=== PATIENT | female | born 1965 | race Caucasian/White ===

== ENCOUNTER → 2017-03-19 | Outpatient (CLI) | payer BC, OTHER ==
[~2017-03-19] MED LIST: MVI; NORCO 325 MG-51 TAB PO
== END ==
LOC: MC.RAD 08:00
DX: Z12.31 Encounter for screening mammogram for malignant neoplasm of breast (principal)

== ENCOUNTER → 2018-04-21 | Outpatient (CLI) | payer OTHER | LOC: MC.RAD 11:40 | DX: Z12.31 Encounter for screening mammogram for malignant neoplasm of breast (principal) ==

== ENCOUNTER → 2019-06-09 | Outpatient (CLI) | payer BC | LOC: MC.RAD 05-19 08:15 | DX: Z12.31 Encounter for screening mammogram for malignant neoplasm of breast (principal) ==

== ENCOUNTER → 2020-06-14 | Outpatient (CLI) | payer BC | LOC: MC.RAD | DX: Z12.31 Encounter for screening mammogram for malignant neoplasm of breast (principal) ==

== ENCOUNTER 2021-09-18 06:36 | Day surgery (SDC) | payer BC ==
[~2021-09-18] VITALS: Ht 162.6 cm; Wt 80.5 kg
[2021-09-18] VITALS (7 sets, daily range): BP systolic 78–123; BP diastolic 43–87; PULSE 65–76; TEMP 97.3–97.5
--- NOTE | 2021-09-18 09:45 | NUR ---
0825 Pt returns from endo procedure via cart and RN assist to GI Person 1. Pt ambulates from cart to recliner with RN assist. Monitors on and alarms set. Call light within reach. Report received from JAYDA Staley. Pt alert and oriented. Pt requests Sprite Zero and muffin. Pt denies any pain or nausea. Pt's present in room. 0835 Pt taking food and drink well. No complications noted. 0905 Discharge instructions given to pt and pt's . All questions answered to their satisfaction. Handed to pt are a thank you card and discharge information. 0945 Pt transferred out of the hospital via wheelchair and this RN assist, to private vehicle driven by pt's .
== END 2021-09-18 09:45 | disposition home or self-care (01) ==
LOC: SDCO 06:36
DX: Z12.11 Encounter for screening for malignant neoplasm of colon (principal); K92.89 Other specified diseases of the digestive system; K57.30 Diverticulosis of large intestine without perforation or abscess without bleeding; E66.8 Other obesity; Z86.16 Personal history of COVID-19
CPT/HCPCS: J2704; J7030

== ENCOUNTER 2023-01-05 19:42 | Emergency (ER) | payer BC ==
[~2023-01-05] VITALS: Ht 162.6 cm; Wt 79.5 kg
[2023-01-05 19:52] VITALS: TEMP 98.1
[2023-01-05 20:34] LABS: BASO # 0.1 K/mm3 (0.0-0.2); BASO % 1.1 % (0.0-2.0); EOS # 0.4 K/mm3 (0.0-0.7); EOS % 5.4 % (0.0-4.0); GRAN # 3.5 K/mm3 (1.4-6.5); GRAN % 47.8 % (42.2-75.2); HEMATOCRIT 41.4 % (37.0-47.0); HEMOGLOBIN 13.7 g/dl (12.5-16.0); LYMPH # 2.8 K/mm3 (1.2-3.4); LYMPH % 38.2 % (20.0-51.0); MEAN CELL VOLUME 95 fl (80.0-100.0); MEAN CORPUSCULAR HEMOGLOBIN 31 pg (27-31); MEAN CORPUSCULAR HGB CONC 33 g/dl (33.0-37.0); MONO # 0.5 K/mm3 (0.1-0.6); MONO % 7.2 % (1.7-9.3); PLATELET COUNT 246 K/mm3 (130-400); RED BLOOD COUNT 4.37 M/mm3 (4.10-5.30); REDCELL DISTRIBUTION WIDTH-CV 12.9 % (11.5-14.5)
[2023-01-05 20:41] LABS: PROTHROMBIN TIME 10.6 SECONDS (9.7-12.8)
[2023-01-05 20:47] LABS: ALANINE AMINOTRANSFERASE 20 U/L (0-55); ALBUMIN 4.4 gm/dL (3.5-5.0); ALKALINE PHOSPHATASE 51 U/L (40-150); ANION GAP 15 mmol/L (7-16); AST,SGOT 19 U/L (5-34); BILIRUBIN,TOTAL 0.4 mg/dL (0.2-1.2); BLOOD UREA NITROGEN 17 mg/dL (10-20); CALCIUM 9.8 mg/dL (8.4-10.2); CARBON DIOXIDE 23 mmol/L (22-29); CHLORIDE 103 mmol/L (98-107); CREATININE, serum 0.89 mg/dL (0.57-1.11); GLUCOSE 91 mg/dL (70-99); POTASSIUM 3.7 mmol/L (3.5-4.5); SODIUM 141 mmol/L (136-145)
[2023-01-05 21:07] LABS: TSH w REFLEX 2.255 uIU/mL (0.350-4.940)
[2023-01-05 21:10] LABS: TROPONIN-I < 0.010 ng/mL (0.00-0.033)
[2023-01-05 21:36] LABS: COLLECTION METHOD CLEAN CATCH
[2023-01-05] MEDS ORDERED: MEDROL 4MG DOSPA4 MG PO (21:40)
[2023-01-05 21:47] LABS: URINE APPEARANCE Cloudy (CLEAR/HAZY); URINE BLOOD 3+ (NEGATIVE); URINE COLOR Yellow (YELLOW); URINE GLUCOSE Negative (NEGATIVE); URINE KETONE Negative (NEGATIVE); URINE NITRATE Negative (NEGATIVE); URINE PROTEIN(semi-quant) Negative (NEGATIVE); URINE UROBILINOGEN 0.2 E.U/dL (0.2-1.0)
[2023-01-05 21:55] LABS: SQUAMOUS EPITHELIAL 0-2 /hpf (0-10)
[2023-01-05 21:56] VITALS: BP 138/75; PULSE 76
[2023-01-05 21:56] LABS: TRICYCLIC ANTIDEPRESS URINE NEGATIVE
== END 2023-01-05 21:56 | disposition home or self-care (01) ==
LOC: COL.ER 19:42
PROVIDERS: Family Medicine
DX: M75.22 Bicipital tendinitis, left shoulder (principal)
CPT/HCPCS: J1100; J1885; J2360

== ENCOUNTER → 2023-09-02 | Outpatient (CLI) | payer BC ==
[~2023-09-02] MED LIST changes: +MEDROL 4MG DOSPA4 MG PO
== END ==
LOC: MC.RAD 13:47
DX: Z12.31 Encounter for screening mammogram for malignant neoplasm of breast (principal)